=== PATIENT | female | born 1980 | race Asian ===

== ENCOUNTER 2024-04-08 19:02 | Emergency (ER) | payer BC ==
[2024-04-08 19:09] VITALS: BP 129/72; PULSE 78; RESP 19; TEMP 98.1; BMI 23.0
== END 2024-04-08 20:09 | disposition home or self-care (01) ==
LOC: JERFT 19:02
DX: S51.852A Open bite of left forearm, initial encounter (principal); W55.01XA Bitten by cat, initial encounter
CPT/HCPCS: 99282-25